=== PATIENT | female | born 1975 ===

== ENCOUNTER 2025-02-18 10:00 | Outpatient (REF) | payer BC, SELFPAY ==
[2025-02-18 15:11] LABS: Adenovirus PCR Not Detected (Not Detect.); Bordetella parapertussis PCR Not Detected (Not Detect.); Bordetella pertussis PCR Not Detected (Not Detect.); Chlamydia pneumoniae PCR Not Detected (Not Detect.); Coronavirus 229E PCR Not Detected (Not Detect.); Coronavirus HKU1 PCR Not Detected (Not Detect.); Coronavirus NL63 PCR Not Detected (Not Detect.); Coronavirus OC43 PCR Not Detected (Not Detect.); Human metapneumovirus PCR Not Detected (Not Detect.); Influenza A PCR Not Detected (Not Detect.); Influenza B PCR Not Detected (Not Detect.); Mycoplasma pneumoniae PCR Not Detected (Not Detect.); Parainfluenza 1 PCR Not Detected (Not Detect.); Parainfluenza 2 PCR Not Detected (Not Detect.); Parainfluenza 3 PCR Not Detected (Not Detect.); Parainfluenza 4 PCR Not Detected (Not Detect.); RSV PCR Not Detected (Not Detect.); Rhino/Enterovirus PCR Detected (Not Detect.)
[2025-02-18 15:22] LABS: Influenza A H1 PCR Not Detected (Not Detect.); Influenza A H1-2009 PCR Not Detected (Not Detect.); Influenza A H3 PCR Not Detected (Not Detect.); SARS-CoV-2 PCR Not Detected (Not Detect.)
== END 2025-02-18 10:01 | disposition home or self-care (01) ==
LOC: HO.LAB 10:00
PROVIDERS: Visit Provider Physician Assistant
DX: J06.9 Acute upper respiratory infection, unspecified (principal); H66.003 Acute suppurative otitis media without spontaneous rupture of ear drum, bilateral
CPT/HCPCS: 87633; 87880

== ENCOUNTER 2025-02-18 10:00 | Outpatient (AMB) | payer BC, SELFPAY ==
--- NOTE | 2025-02-18 10:04 | AM.OFFWIN_ITS ---
Intake Vital Signs 02/18/25 10:06 Weight 128 lb 6 oz BP 122/80 Blood Pressure Location Lt brachial Position Sitting Pulse 71 Pulse Source Pulse Oximeter Temp 98.3 F Temp Source Oral Pulse Oximetry (%) 96 Oxygen Delivery Method Room Air Intake Visit Reasons: [employer]-sore throat, earache, cough, running nose Intake Note: Patient here for sore throat, ear pain, cough and congestion that started yesterday and has progressively worsened. Patient Tobacco Use Status: Never used Tobacco Allergies penicillin V Allergy (Unknown, Verified 02/18/25 10:07) rash Do you need a note to return to daycare/school/sports/work: No HPI HPI Comments History of Present Illness Details History - The patient is a 49-year-old female pr esenting with upper respiratory symptoms, including sinus congestion and ear pain. - Initial symptoms began two days ago wi th an itchy, scratchy throat. - Progression included molar pain, sinus congestion, and eventual ear pain described as similar to past ear infections. - She has had difficulty maintaining bod y warmth but reports no significant fever; a normal temperature of 98.3?F was noted. - The patient noted head congestion and is aware of potential seasonal allergies, although no routine honey and tea regimen was followed this year. - She reports previous symptoms resembli ng current ear discomfort, has a history of an ear infection - Allergy to penicillin noted with previ ous rash reaction. - Other family and colleagues at home re main healthy. Physical Exam General: Cooperative, healthy appearing, comfortable and no acute distress Orientation/consciousness: Patient oriented x3 Limitations: No limitations Head: Normal to inspection Ears: Hearing grossly normal bilaterally, external ears normal, TM's dark erythematous, purulent fluid and slight bulging Nose: Normal external nose present, Normal nares present and No nasal discharge present Face and sinus: Normal facial exam and Yes sinuses nontender Mouth: Normal oral and palatal mucosa present and moist mucous membranes Throat: Yes tonsils normal, Yes uvula midline. Posterior oropharynx erythema Eyes: Appearance normal, both eyes and all related structures Neck: Normal visual inspection Respiratory: Clear to auscultation bilaterally. Normal respiratory effort, able to speak in complete sentences, Actively coughing, no respiratory distress, not tachypneic, no tripod positioning and no use of accessory muscles Cardiovascular: Regular rate and rhythm. Normal S1 and S2 Skin: No rashes or lesions noted Neuro: Patient oriented x3 Extremities: Normal to inspection and Yes no clubbing, cyanosis or edema PFSH Social History Patient Tobacco Use Status: Never used Tobacco Review of Systems Const All systems reviewed & are unremarkable except as noted in HPI and below Physical Exam Vital Signs: Last Vital Signs Temp 98.3 F 02/18/25 10:06 Pulse 71 02/18/25 10:06 BP 122/80 02/18/25 10:06 Pulse Ox 96 02/18/25 10:06 Oxygen Delivery Method Room Air 02/18/25 10:06 Results AMB Rapid Strep AMB Rapid Strep Negative Last Edit by TABITHA Allison on 02/18/25 10:46 Results Reviewed Results Reviewed: Laboratory Last Values Strep Scn Rapid Clinic Negative 02/18/25 10:45 Assessment & Plan Assessment & Plan (1) Otitis media of both ears: Code(s): H66.93 - Otitis media, unspecified, bilateral Qualifiers: Chronicity: acute Otitis media type: suppurative Recurrence: non- recurrent Spontaneous tympanic membrane rupture: without spontaneous rupture Qualified Code(s): H66.003 - Acute suppurative otitis media without spontaneous rupture of ear drum, bilateral Plan: VSS, pt well appearing and PE remarkable for bilat OM. The patient is likely experiencing an upper respiratory tract infection accompanied by otitis media. Treatment with Cefuroxime was initiated, taking into consideration the patient's penicillin allergy. An oral steroid regimen was prescribed to help mitigate sinus congestion, and an antihistamine like Zyrtec was advised to manage any allergic components. A viral panel was ordered to identify any concurrent viral infection; results will guide further therapeutic adjustments if necessary. The patient was advised on the importance of wearing a mask to prevent transmission of potential viral components, encouraging rest and hydration as supportive measures. Patient was informed and verbally consented to the use of an ambient scribe for clinic note documentation during this visit (2) URI, acute: Code(s): J06.9 - Acute upper respiratory infection, unspecified Plan: as above Orders: Orders AMB Rapid Strep Screen Today Z13.9 - Encounter for screening, unspecified Resp Pathogen Panel - [facility] [place] J06.9 - Acute upper respiratory infection, unspecified Medications: New prednisone 20 mg PO DAILY 5 tabs 0RF cefuroxime axetil 500 mg PO Q12H 10 tabs 0RF Coding Level of Care Code New Pt Level 3 (49559) Diagnoses Non-recurrent acute suppurative otitis media of both ears without spontaneous rupture of tympanic membranes H66.003 Chronicity: acute Otitis media type: suppurative Recurrence: non-recurrent Spontaneous tympanic membrane rupture: without spontaneous rupture URI, acute J06.9
[2025-02-18 10:06] VITALS: BP 122/80; PULSE 71; TEMP 36.8; O2SAT 96
--- OUTSIDE RECORDS SUMMARY | 2025-02-18 11:21 | XMS_ITS | Data Portability ---
Author Organization [facility], , [facility] Address [address] [place] [address] Care Team Providers [employer] Name Role Phone SRI OVERTON Primary Care Provider [facility] (ARIELA TRIMBLE) Orthopedic Surgeon Assessment Encounter Date Assessment Date Assessment LastModified by Organization Details LastModified Time 07/15/2019 07/15/2019 Patient will f/u with LABOR RELATIONS SUPERVISOR provider about pap and removal of Mirena IUD next year. Recommended eye and dental exam. rashard Not available 07/15/2019 10:16:44 10/29/2020 10/29/2020 Patient agreed to this visit via a secure telehealth platform due to the COVID -19 pandemic. Patient understands this is a scheduled visit and the usual procedures with regard to billing and confidentiality apply. Patient was notified that the provider location is [facility] Patient location: home During the visit the patient? s medical history and medical record were reviewed. The patient was notified to call our office for worsening or urgent symptoms. After a discussion of treatment options, which included consideration of best practices and patient preferences, the following treatment plan and objectives were adopted: [email or web address] Not available 10/29/2020 14:41:55 09/12/2022 09/12/2022 After a discussion of treatment options, which included consideration of best practices and patient preferences, the following treatment plan and objectives were adopted: Not available 10/20/2022 17:48:57 Plan of Treatment Reminders Order Date Submit Date Provider Last Modified By Organization Details Last Modified Time Details Appointments None record ed. Lab lipid panel, serum 2023 024 [facility], [address] [place], [address], 4 15:04:16 BMP, serum or plasma 2023 024 [facility], [address] [place], [address], 4 15:04:15 CBC 2023 024 [facility], [address] [place] [address], [address], 4 12:29:09 TSH, serum or plasma 2023 024 [facility], [address] [place] [address], [address], 4 15:00:42 pap, LB + HPV - if HPV positi ve reflex to HPV subtyp ing 2022 023 [facility] (Pathology), [address] [place], [address], 3 14:24:37 Referral gyneco logist referr al 2023 024 [email or web address], [address] [place] [address] , [place], [address], 4 12:18:46 Procedures colono scopy proced ure (PROC) [address] [facility], [address] [place], [address], 2 09:04:31 Surgeries None record ed. Imaging MAMMO, screen ing, tomosy nthesi s, bilate ral 2021 023 [facility] (Imaging), [address], [place], [address], 3 14:58:00 Medication Orders albute rol sulfat e HFA 90 mcg/ac tuatio n aeroso l inhale r 2019 020 [id number] [id number], [id number] [facility], [place], [address], 09:06:26 Patient TargetsNo targets recorded. 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 Referral for [place] rveillance of intrauterine device contraception done Referring Physician: Sintia Townsend, Family Medicine, Encounter Date: 01/01/2024 Results Created Date Observation Date Name Description Value Unit Range Abnormal Flag Note LastModifiedBy Organization Detail LastModifiedTime 10/26/20 20 10/26/2020 SARS CoV 2 RNA, QL probe , unspe cifie d speci men covid-19 PCR specimen source UNKNOW N Not Available [facility] (Centralized Electronic Ordering - All Locations) Patient Can Go To The Location Of Their Choice, [id number] 10/27/2020 13:33:12 10/26/20 20 10/27/2020 SARS CoV 2 RNA, QL probe , unspe cifie d speci men covid-19 PCR result (neg) abnormal POSIT ILEANA Posit ileana for detec tion of 2019- novel Coron aviru s (2018 -nCoV ) by RT-PC R. Resul t repor sujatha to [facility]. All test resul ts must be corre lated with clini ruth findi ngs. This test has been autho rized by the FDA under an Emerg ency Use Autho rizat ion (EUA) for use by autho rized labor atori es. Testi ng perfo rmed on the Holog ic Panth er Aptim a assay utili zing trans cript ion-m ediat ed ampli ficat ion (TMA) . Not Available [facility] (Centralized Electronic Ordering - All Locations) Patient Can Go To The Location Of Their Choice, 10/27/2020 13:33:12 09/26/2009/26/2022 BASIC METAB OLIC PANEL glucose 95 mg/dL (70-99 ) Fasti ng Not Available [facility] (Centralized Electronic Ordering - All Locations) Patient Can Go To The Location Of Their Choice, 09/26/2022 16:47:43 09/26/2009/26/2022 BASIC METAB OLIC PANEL BUN 14 mg/dL (6-20) Not Available [facility] (Centralized Electronic Ordering - All Locations) Patient Can Go To The Location Of Their Choice, 09/26/2022 16:47:43 09/26/2009/26/2022 BASIC METAB OLIC PANEL creatinine 0.7 mg/dL (0.5-1 .0) Not Available [facility] (Centralized Electronic Ordering - All Locations) Patient Can Go To The Location Of Their Choice, 09/26/2022 16:47:43 09/26/2009/26/2022 BASIC METAB OLIC PANEL sodium 142 mmol/ L (133-1 45) Not Available [facility] (Centralized Electronic Ordering - All Locations) Patient Can Go To The Location Of Their Choice, 09/26/2022 16:47:43 09/26/2009/26/2022 BASIC METAB OLIC PANEL potassium 4.7 mmol/ L (3.6-5 .2) Not Available [facility] (Centralized Electronic Ordering - All Locations) Patient Can Go To The Location Of Their Choice, 09/26/2022 16:47:43 09/26/2009/26/2022 BASIC METAB OLIC PANEL chloride 106 mmol/ L (98-10 7) Not Available [facility] (Centralized Electronic Ordering - All Locations) Patient Can Go To The Location Of Their Choice, 09/26/2022 16:47:43 09/26/2009/26/2022 BASIC METAB OLIC PANEL bicarbonate 28 mmol/ L (22-29 ) Not Available [facility] (Centralized Electronic Ordering - All Locations) Patient Can Go To The Location Of Their Choice, 09/26/2022 16:47:43 09/26/2009/26/2022 BASIC METAB OLIC PANEL anion gap 8 (4-17) Not Available [facility] (Centralized Electronic Ordering - All Locations) Patient Can Go To The Location Of Their Choice, 09/26/2022 16:47:43 09/26/20 22 09/26/2022 BASIC METAB OLIC PANEL calcium 9.8 mg/dL (8.6-1 0.5) Not Available [facility] (Centralized Electronic Ordering - All Locations) Patient Can Go To The Location Of Their Choice, 09/26/2022 16:47:43 09/26/20 22 09/26/2022 BASIC METAB OLIC PANEL estimated GFR creatinine 101 mL/mi n/1.7 3_M2 Creat inine based estim ated glome rular filtr ation (eGFR ) in adult s is calcu lated using the Natio nal Kidne y Found ation recom maría d 2020 CKD-E PI equat ion. Estim ates GFR from serum creat inine , age and sex. Not Available [facility] (Centralized Electronic Ordering - All Locations) Patient Can Go To The Location Of Their Choice, 09/26/2022 16:47:43 09/26/2009/26/2022 LIPID PANEL cholesterol, total 292 mg/dL (<200) high Not Available [facility] ([facility] Ordering - All Locations) Patient Can Go To The Location Of Their Choice, 09/26/2022 16:47:45 09/26/2009/26/2022 LIPID PANEL triglyceride 166 mg/dL (<150) high Fasti ng Not Available [facility] (Centralized Electronic Ordering - All Locations) Patient Can Go To The Location Of Their Choice, 09/26/2022 16:47:45 09/26/2009/26/2022 LIPID PANEL HDL chol 74 mg/dL (>39) Not Available [facility] (Centralized Electronic Ordering - All Locations) Patient Can Go To The Location Of Their Choice, 09/26/2022 16:47:45 09/26/2009/26/2022 LIPID PANEL LDL cholesterol, calculated 185 mg/dL (0-130 ) high Not Available [facility] (Centralized Electronic Ordering - All Locations) Patient Can Go To The Location Of Their Choice, 09/26/2022 16:47:45 09/26/20 22 09/26/2022 LIPID PANEL non HDL cholesterol (calc) 218 mg/dL (<160) high Not Available [facility] (Centralized [facility] Ordering - All Locations) Patient Can Go To The Location Of Their Choice, 09/26/2022 16:47:45 09/26/20 22 09/26/2022 TSH TSH 1.40 uIU/m L (0.4-4 .2) Not Available [facility] (Centralized Electronic Ordering - All Locations) Patient Can Go To The Location Of Their Choice, 09/26/2022 16:52:52 09/26/2009/27/2022 ANTI- HEPAT ITIS C anti-hepatit is C (neg) normal NEGAT ILEANA Refer ence range : Negat ileana This test was perfo rmed on the Abbot t Archi tect immun oassa y syste m. Not Available [facility] (Centralized Electronic Ordering - All Locations) Patient Can Go To The Location Of Their Choice, 09/27/2022 10:48:53 01/01/20 24 01/01/2024 CBC WBC 4.38 K/? ? ?L 3.98-1 0.04 Not Available [address], [address], 01/01/2024 12:29:08 01/01/20 24 01/01/2024 CBC RBC 4.69 M/? ? ?L 3.93-5 .22 Not Available [address], [address], 01/01/2024 12:29:08 01/01/20 24 01/01/2024 CBC HGB 13.8 g/dL 11.2-1 5.7 Not Available [address], [address], 01/01/2024 12:29:08 01/01/20 24 01/01/2024 CBC HCT 42.5 % 34.1-4 4.9 Not Available [address], [address], 01/01/2024 12:29:08 01/01/20 24 01/01/2024 CBC MCV 90.6 fL 79.4-9 4.8 Not Available [address], [address], 01/01/2024 12:29:08 01/01/20 24 01/01/2024 CBC MCH 29.4 pg 25.6-3 2.2 Not Available [address], [address], 01/01/2024 12:29:08 01/01/20 24 01/01/2024 CBC MCHC 32.5 g/dL 32.2-3 5.5 Not Available [address], [address], 01/01/2024 12:29:08 01/01/20 24 01/01/2024 CBC plt 231 K/? ? ?L 182-36 9 Not Available [address], [address], 01/01/2024 12:29:08 01/01/20 24 01/01/2024 CBC MPV 11.8 fL 9.4-12 .3 Not Available [address], [address], 01/01/2024 12:29:08 01/01/20 24 01/01/2024 CBC neut% 61.9 % 34.0-7 1.1 Not Available [address], [address], 01/01/2024 12:29:08 01/01/20 24 01/01/2024 CBC neut# 2.71 1.56-6 .13 Not Available [address], [address], 01/01/2024 12:29:08 01/01/20 24 01/01/2024 CBC lymph % 27.9 % 19.3-5 1.7 Not Available [address], [address], 01/01/2024 12:29:08 01/01/20 24 01/01/2024 CBC lymph # 1.22 K/? ? ?L 1.18-3 .74 Not Available [address], [address], 01/01/2024 12:29:08 01/01/20 24 01/01/2024 CBC mono% 8.4 % 4.7-12 .5 Not Available [address], [address], 01/01/2024 12:29:08 01/01/20 24 01/01/2024 CBC mono# 0.37 0.24-0 .56 Not Available [address], [address], 01/01/2024 12:29:08 01/01/20 24 01/01/2024 CBC eo% 0.9 % 0.7-5. 8 Not Available [address], [address], 01/01/2024 12:29:08 01/01/20 24 01/01/2024 CBC eo# 0.04 0.04-0 .36 Not Available [address], [address], 01/01/2024 12:29:08 01/01/20 24 01/01/2024 CBC baso% 0.7 % 0.1-1. 2 Not Available [address], [address], 01/01/2024 12:29:08 01/01/20 24 01/01/2024 CBC baso# 0.03 0.00-0 .08 Not Available [address], [address], 01/01/2024 12:29:08 01/01/20 24 01/01/2024 CBC RDW-CV 13.2 % 11.7-1 4.4 Not Available [address], [address], 01/01/2024 12:29:08 01/01/20 24 01/01/2024 CBC Ig% 0.200 % 0.000- 1.500 Ig % >0.5 Indic ates possi ble Left Shift Not Available [address], [address], 01/01/2024 12:29:08 01/01/20 24 01/01/2024 CBC Ig# 0.010 0.000- 0.093 Not Available [address], [address], 01/01/2024 12:29:08 01/01/20 24 01/01/2024 CBC NRBC% 0.0 % 0.0-0. 2 Not Available [address], [address], 01/01/2024 12:29:08 01/01/20 24 01/01/2024 CBC NRBC# 0.000 0.000- 0.012 Not Available [address], [address], 01/01/2024 12:29:08 01/01/20 24 01/01/2024 TSH TSH 1.91 uIU/m L 0.50-6 .00 The Ameri can Colle ge of Endoc rinol ogy and Ameri can Thyro id Assoc iatio n recom mend goal TSH value s betwe en 0.4-4 .0 mIU/m L. Not Available [address], [address], 01/01/2024 15:00:42 01/01/20 24 01/01/2024 BASIC METAB OLIC PANEL glucose 91 mg/dL 70-100 Not Available [address], [address], 01/01/2024 15:04:15 01/01/20 24 01/01/2024 BASIC METAB OLIC PANEL BUN 18 mg/dL 7-18 Not Available [address], [address], 01/01/2024 15:04:15 01/01/2001/01/2024 BASIC METAB OLIC PANEL creatinine 0.7 mg/dL 0.8-1. 3 low Not Available [address], [address], 01/01/2024 15:04:15 01/01/2001/01/2024 BASIC METAB OLIC PANEL B/C 25.7 ratio Not Available [address], [address], 01/01/2024 15:04:15 01/01/2001/01/2024 BASIC METAB OLIC PANEL GFR >=60ML /MIN mL/mi n normal >=60m L/min - Madelin l or midly reduc ed <60mL /min- Decre ased kidne y funct ion <15mL /min - Kidne y failu re [facility] calcu lates estim ated Glome rular Filtr ation Rate (eGFR ) using the Chron ic Kidne y Disea se Epide miolo gy Colla borat ion (CKD- EPI) Equat ion (Jag r et. al 2020) as recom maría d by the Natio nal Kidne y Found ation . eGFR is based on age, serum creat inine , and sex. CKD-E PI does not calcu late eGFR by race, does not apply to child jessica (age <18 years ), and shoul d not be used in pregn robby. Not Available [address], [address], 01/01/2024 15:04:15 01/01/2001/01/2024 BASIC METAB OLIC PANEL sodium 144 mmol/ L 136-14 5 Not Available [address], [address], 01/01/2024 15:04:15 01/01/20 24 01/01/2024 BASIC METAB OLIC PANEL potassium 4.7 mmol/ L 3.5-5. 1 Not Available [address], [address], 01/01/2024 15:04:15 01/01/20 24 01/01/2024 BASIC METAB OLIC PANEL chloride 105 mmol/ L 96-107 Not Available [address], [address], 01/01/2024 15:04:15 01/01/20 24 01/01/2024 BASIC METAB OLIC PANEL anion gap 12.5 5.0-15 .0 Not Available [address], [address], 01/01/2024 15:04:15 01/01/20 24 01/01/2024 BASIC METAB OLIC PANEL CO2 27 mmol/ L 21-32 Not Available [address], [address], 01/01/2024 15:04:15 01/01/20 24 01/01/2024 BASIC METAB OLIC PANEL calcium 9.3 mg/dL 8.5-10 .3 Not Available [address], [address], 01/01/2024 15:04:15 01/01/20 24 01/01/2024 LIPID PANEL cholesterol 286 mg/dL <200 mg/dl Selvin able 200-2 39 mg/dl Borde rline High >240 mg/dl High Not Available [address], [address], 01/01/2024 15:04:16 01/01/20 24 01/01/2024 LIPID PANEL triglyceride s 81 mg/dL <150 mg/dL Madelin l 150-1 99 mg/dL Borde rline High 200-4 99 mg/dL High >500 mg/dL Very High Not Available [address], [address], 01/01/2024 15:04:16 01/01/20 24 01/01/2024 LIPID PANEL direct HDL 84 mg/dL <40 mg/dl - Major Risk for CHD >60 mg/dl - Negat ileana Risk for CHD Not Available [address], [address], 01/01/2024 15:04:16 01/01/20 24 01/01/2024 LDL - CALCU LATED LDL - calculated 185.8 RISK CATEG ORY LDL GOAL _ CHD or CHD Risk Equiv alent s <100 mg/dl (10-y ear risk >20%) 2+ Risk Facto rs <130 mg/dl (10-y ear risk <= 20%) 0-1 Risk Facto r? <160 mg/dl ? Almos t all peopl e with 0-1 risk facto r have a 10 year risk <10%, thus 10 year risk asses ment in peopl e with 0-1 risk facto r is not neces lino. Not Available [address], [address], 01/01/2024 15:04:18 02/28/20 23 02/27/2023 MAMMO , scree mari, tomos ynthe sis, bilat eral CLINIC AL HISTOR Y: Screen ing. TECHNI QUE: 3D mammog charito (tomos ynthes is) and 2D mammog charito (C-vie w) images are genera sujatha. Images review ed with a CAD system . COMPAR LUCÍA: Prior mammog grady back cyrus Rodriguez y 2011. BREAST DENSIT Y: C. The breast s are hetero geneou sly dense, which may obscur e small masses . FINDIN GS: There are no suspic ious masses . There are no suspic ious microc alcifi cation s. The breast rupa ecture is normal . IMPRES RENATA: No mammog raphic eviden ce of malign robby. Annual mammog raphic screen ing recomm ended. This facili ty uses a remind er system with a target date for the next mammog [place]. BIRADS : 1, NEGATI VE Readin g Physic luke: Mark Adamson [facility] (Imaging) [address] , [place], [address], 02/27/2023 15:12:33 Result Notes None recorded. Problems Name Problem SNOMED Code Status Onset Date Resolution Date Notes Provider Name and Address Organization Details Recorded Time COVID-19 751554906 Active 2019 pos test 2019 Ling Altamirano er, DIGGING MACHINE OPERATOR [address] [place] [address], [phone] , [facility] 0 16:31:09 Headache 86259764 Completed 200208/30/2010 Not Available [facility] 3 03:04:58 Renal colic 8128257 Completed 200103/27/2012 Not Available [facility] 3 03:04:58 Gastroesop hageal reflux disease 259407411 Active Not Available [facility] 3 03:04:58 Nausea and vomiting 68645171 Completed 200208/30/2010 Not Available [facility] 3 03:04:58 Ureteric stone 81593878 Completed 200103/27/2012 Not Available [facility] 3 03:04:58 Constipati on 22235093 Completed 09/18/2013 Not Available [facility] 3 02:02:39 Premenstru al tension syndrome 37012683 Completed 200603/27/2012 Not Available [facility] 3 03:04:58 Dizziness 240879084 Completed 200303/27/2012 Not Available [facility] 3 03:04:58 Breast lump 11236743 Completed 03/27/2012 Not Available [facility] 3 03:04:58 Neoplasm of uncertain behavior of skin 49283425 Completed 03/27/2012 Not Available [facility] 3 03:04:58 Abdominal pain 47704425 Completed 200103/27/2012 Not Available [facility] 3 03:04:58 Verruca vulgaris 29024820 Completed 200503/27/2012 Not Available [facility] 3 03:04:58 On examinatio n - a rash Completed 200508/30/2010 Not Available [facility] 3 03:04:58 Abnormal weight gain 764264861 Completed 03/27/2012 Not Available [facility] 3 03:04:58 Acute maxillary sinusitis 92452343 Completed 200308/30/2010 Not Available [facility] 3 03:04:58 Otalgia 08221498 Completed 08/30/2010 Not Available [facility] 3 03:04:58 Epigastric pain 30157778 Completed 200403/27/2012 Not Available [facility] 3 03:04:58 Pain in limb 08542824 Completed 200603/27/2012 Not Available [facility] 3 03:04:58 Viral upper respirator y tract infection 933656189 Completed 200008/30/2010 Not Available [facility] 3 03:04:58 Malaise and fatigue 593928975 Completed 200008/30/2010 Not Available [facility] 3 03:04:58 Pain in eye 43427476 Completed 03/27/2012 Not Available [facility] 3 03:04:58 Problem Notes None recorded. Procedures Surgical History Date Name Laterality Status Provider Name and Address Organization Details Recorded Time 01/01/20 24 Advanced Care Planning completed ECTOR Vargas [facility] 12/31/2023 11:48:40 09/12/20 22 Alcohol use screening completed SRI OVERTON PA-C [address] [place] [address], [phone], [facility] 10/20/2022 17:34:38 09/12/20 22 Cardiovascular disease risk reduction counseling completed SRI OVERTON PA-C [address] [place] [address], [phone], [facility] 10/20/2022 17:34:46 09/12/20 22 Depression Screening completed SRI OVERTON PA-C [address] [place] [address], [phone], [facility] 10/20/2022 17:34:42 07/11/20 14 Wart completed Madison Crump NP [address] [place] [address], [phone], [facility] 07/11/2014 08:26:00 05/07/20 12 Wart completed Madison Crump NP [address] [place] [address], [phone], [facility] 05/07/2012 11:53:58 04/09/20 12 Wart completed Madison Crump NP [address] [place] [address], [phone], [facility] 04/09/2012 13:47:21 03/27/20 12 [place] completed Madison Crump NP [address] [place] [address], [phone], [facility] 03/27/2012 09:12:46 Imaging Results Imaging Date Name Status LastModified by Organiz ation Details LastModified Time 02/27/2023 MAMMO, screening, tomosynthesis, bilateral completed [facility] ([facility]) [address], [place], [address], 02/27/2023 15:12:33 Procedure Notes None recorded. Medical Equipment None Reported. Allergies Allergen ID Allergen Name Allergen Category Reaction Reaction Severity Criticality Documentation Date Start Date Code Code System Note Provider Name and Address Organization Details Recorded Time 31510 Product containin g penicilli n (product) medicatio n Not available Not available Not available 03/17/2009 91121 8001 SNOMED Not Available [facility] 1 06:05:20 Medications Name Sig Start Date Stop Date Status Note LastModified by Organization Details LastModified Time clindamycin HCl 300 mg capsule TAKE 1 CAPSULE BY MOUTH THREE TIMES A DAY 12/31 completed Not Available Not Available Not Available azithromyci n 250 mg tablet TAKE 2 TABLETS BY MOUTH TODAY, THEN TAKE 1 TABLET DAILY FOR 4 DAYS 07/15 completed Not Available Not Available Not Available Tubersol 5 tub. unit/0.1 mL intradermal injection solution 09/05 completed Not Available Not Available Not Available oxycodone-a cetaminophe n 5 mg-325 mg tablet TAKE 1 TABLET BY MOUTH EVERY 4 TO 6 HOURS NEEDED 12/31 completed Not Available Not Available Not Available meclizine 25 mg tablet Take 1 tablet 3 times a day by oral route. 09/05 completed Not Available Not Available Not Available benzonatate 100 mg capsule TAKE 1 CAPSULE BY MOUTH THREE TIMES A DAY 07/15 completed Not Available Not Available Not Available doxycycline monohydrate 100 mg capsule Take 2 capsules at once today 2010 active Not Available Not Available Not Avai lable codeine 10 mg-guaifene sin 100 mg/5 mL Syrup Take 10 mL every 4 hours by oral route. 2010 active Not Available Not Available Not Avai lable ibuprofen 600 mg tablet 1 TABLET EVERY 4 TO 6 HOURS NEEDED 12/31 completed Not Available Not Available Not Available albuterol sulfate HFA 90 mcg/actuati on aerosol inhaler INHALE 2 PUFFS BY MOUTH EVERY 4 HOURS 12/31 completed Not Available Not Available Not Available chlorhexidi ne gluconate 0.12 % mouthwash SWISH AND SPIT 15 ML IN THE MORNING AND IN THE EVENING FOR 2 WEEKS 12/31 completed Not Available Not Available Not Available multivitami n active Not Available Not Available Not Available [facility] Not Available Not Available Not Available omeprazole 20 mg tablet,marlee yed release Take 1 tablet every day by oral route. 2008 active Not Available Not Available Not Avai lable bimatoprost 0.03 % drops with applicator, eyelash base INSTILL 1 DROP TO UPPER EYE LID DAILY 12/31 completed Not Available Not Available Not Available Vitals Date Recorded Body height Body mass index (BMI) Body weight Heart rate Systolic blood pressure Diastolic blood pressure Provider Name and Address Organization Details Last Updated DateTime 9 231.14 cm 10.8 kg/m2 51220.2 3 g 60 /min 96 mm[Hg] 60 mm[Hg] Esperanza Patrick MA [facility] 9 09:51:21 Date Recorded Body height Body mass index (BMI) Body weight Provider Name and Address Organization Details Last Updated DateTime 10/29/2020 165.1 cm 20.6 kg/m2 34250.45 g Esperanza Patrick [facility] 10/29/2020 14:27:18 Date Recorded Body weight Body mass index (BMI) Body height Heart rate Oxygen saturation Oxygen saturation in Arterial blood by Pulse oximetry Systolic blood pressure Diastolic blood pressure Provider Name and Address Organization Details Last Updated DateTime 2 53765.1 9 g 24.4 kg/m2 157.48 cm 58 /min 99 % 99 % 131 mm[Hg] 94 mm[Hg] Leah Lancaster CMA [facility] 2 11:25:31 Date Recorded Body height Body mass index (BMI) Body weight Heart rate Oxygen saturation Oxygen saturation in Arterial blood by Pulse oximetry Systolic blood pressure Diastolic blood pressure Provider Name and Address Organization Details Last Updated DateTime 4 157.48 cm 22.9 kg/m2 78907.0 5 g 68 /min 98 % 98 % 110 mm[Hg] 70 mm[Hg] ECTOR Vargas [facility] 4 09:12:01 Social History Question Answer Notes LastModified by Organizat ion Details LastModified Time Tobacco Smoking Status Never Smoker Not Available [facility] 09/15/2011 04:53:49 Do You Have An Advance Directive? No 03/27/12 Paperwork Given true Information not available 11/21/2022 What Is Your Level Of Alcohol Consumption? Moderate 2 Drinks A Day.. 3.4.24 NR [email or web address] Information not available 01/01/2024 Do You Wear A Helmet When Biking? Yes Information not available 09/25/2017 What Is Your Level Of Caffeine Consumption? Moderate Tea And Coffee [email or web address] Information not available 09/12/2022 How Much Tobacco Do You Chew? None Information not available 03/27/2012 What Type Of Diet Are You Following? REGULAR Very Little Meat Information not available 03/27/2012 Which Illicit Or Recreational Drugs Have You Used? None Information not available 09/25/2017 Do You Or Have You Ever Used E-cigarettes Or Vape? 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 Yes Mother In Aug 2020.. Dad Passed 2011 [email or web address] Information not available 01/01/2024 How Many Days In The Past Year Have You Had A Heavy Drinking Consumption (4+ Female, 5+ Male)? 0 Information not available 11/21/2022 Are There Any Guns Present In Your Home? No [email or web address] Information not available 09/12/2022 Do You Use Insect Repellent Routinely? No [email or web address] Information not available 09/12/2022 Live Alone Or With Others? With Others Information not available 11/21/2022 Patient Has Health Care Proxy Signed And In Chart No Evangelina Evans (best Friend) [email or web address] Information not available 11/01/2018 Marital Status [email or web address] Informa tion not available 11/21/2022 Mosquito Repellent Used Routinely No Information not available 11/21/2022 What Was The Date Of Your Most Recent Tobacco Screening? 01/01/2024 Information not available 01/01/2024 How Many Children Do You Have? 0 Information not available 03/27/2012 What Is Your Relationship Status? [email or web address] Information not available 01/01/2024 Do You Use Your Seat Belt Or Car Seat Routinely? Yes [email or web address] Information not available 09/12/2022 Seat Belts Used Routinely Yes Information not available 11/21/2022 Smoke Alarm In Home Yes Information not available 11/21/2022 Do You Have Smoke And Carbon Monoxide Detectors In Your Home? Yes [email or web address] Information not available 09/12/2022 Are You Passively Exposed To Smoke? No [email or web address] Information not available 09/12/2022 Do You Or Have You Ever Used Smokeless Tobacco? Never Used Smokeless Tobacco Information not available 07/15/2019 How Much Tobacco Do You Smoke? No Information not available 07/15/2019 General Stress Level High Information not available 11/21/2022 Do You Use Any Illicit Or Recreational Drugs? No [email or web address] Information not available 09/12/2022 Do You Use Sunscreen Routinely? Yes Information not available 09/25/2017 How Many Years Have You Smoked Tobacco? 0 Information not available 07/15/2019 Sex: Unknown Functional Status None recorded. Mental Status None recorded. Family History Relationship Description Onset Age of this Age Resolved Age Notes LastModified by Organization Details LastModified Time Mother Hypertensive disorder [email or web address] Not available 07/11 08:29:43 Notes:Cardiovascular: Family history is remarkable for hypertension. mother. Respiratory: Family history is remarkable for asthma. father. Psychiatric: Family history is remarkable for post traumatic stress disorder. mother and father. Endocrine: Family history is remarkable for hyperlipidemia and T2DM (mother) Medical History No medical history recorded. Gynecological HistoryNo gynecological history recorded. Obstetrics History GPAL:G 0 P 0 0 0 0 Immunizations Vaccine Type Date Status Note Provider Nam e and Address Organization Details Recorded Time Influenza, split virus, trivalent, preservative 1 completed Not Available [facility] 11/16/2019 02:30:28 Td(adult) unspecified formulation 6 completed Not Available [facility] 09/14/2011 05:21:29 Hep B, unspecified formulation 6 completed Ling Harper, DIGGING MACHINE OPERATOR [address] [place] [address], [address], [facility] 11/21/2022 09:33:44 influenza, unspecified formulation 7 completed Not Available [facility] 09/14/2011 05:21:55 Tdap 2 completed Not Available [facility] 11/16/2019 02:15:47 Influenza, split virus, trivalent, PF 3 completed Not Available [facility] 11/16/2019 02:34:51 Influenza, split virus, quadrivalent, PF 4 completed Not Available [facility] 11/16/2019 02:19:20 polio, unspecified formulation 3 completed Ling Harper, DIGGING MACHINE OPERATOR [address] [place], [address], [facility] 11/21/2022 09:33:44 MMR 2 completed Ling Perkinsider, DIGGING MACHINE OPERATOR [address] [place], [address], [facility] 11/21/2022 09:33:44 polio, unspecified formulation 4 completed Ling Harper, DIGGING MACHINE OPERATOR [address] [place], [address], [facility] 11/21/2022 09:33:44 DTP 4 completed Ling Harper, DIGGING MACHINE OPERATOR [address] [place], [address], [facility] 11/21/2022 09:33:44 DTP 3 completed Ling Harper, DIGGING MACHINE OPERATOR [address] [place], [address], [facility] 11/21/2022 09:33:44 MMR 1 completed Lign Harper, DIGGING MACHINE OPERATOR [address] [place], [address], [facility] 11/21/2022 09:33:44 DTP 2 completed Ling Harper, DIGGING MACHINE OPERATOR [address] [place], [address], [facility] 11/21/2022 09:33:44 polio, unspecified formulation 2 completed Ling Harper, DIGGING MACHINE OPERATOR [address] [place], [address], [facility] 11/21/2022 09:33:44 Influenza, split virus, quadrivalent, PF 6 completed Not Available [facility] 11/16/2019 02:37:10 Influenza, split virus, quadrivalent, PF 7 completed Not Available [facility] 11/16/2019 02:34:53 Influenza, split virus, trivalent, preservative 0 completed Not Available [facility] 11/16/2019 02:17:49 COVID-19, mRNA, LNP-S, PF, 30 mcg/0.3 mL dose 1 completed Leah Lancaster PEDIATRIC DENTIST null, [facility] 09/12/2022 11:14:21 COVID-19, mRNA, LNP-S, PF, 30 mcg/0.3 mL dose 1 completed Leah Lancaster PEDIATRIC DENTIST null, [facility] 09/12/2022 11:14:26 COVID-19, mRNA, LNP-S, bivalent, PF, 30 mcg/0.3 mL dose 2 completed ECTOR Vargas null, [facility] 12/31/2023 11:46:31 Past Encounters Encounter ID Performer Location Encounter Start Date Encounter Closed Date Diagnosis/Indication Diagnosis SNOMED-CT Code Diagnosis ICD10 Code Diagnosis Note [id number] SURESH [facility] [place] [address] [place] [id number] 02/26/2001 13:00:00 11/19/2008 02:02:29 [id number] Radiology , [address] [place] [id number] 01/02/2002 11:15:00 11/19/2008 02:02:29 [id number] SURESH [facility] [place] [address] [place] [id number] 01/02/2002 10:00:00 11/19/2008 02:02:29 [id number] Eye Care, [address] [place] [id number] 06/13/2002 14:08:33 11/19/2008 02:02:29 [id number] SURESH [facility] [place] OFF[place] [address] [place] [address] 07/09/2003 13:52:12 07/10/2003 09:30:07 [id number] LAB - [address] [place] [id number] 07/09/2003 00:00:00 11/19/2008 02:02:29 [id number] SURESH [facility] [place] OFF[place] [address] [place] [address] 11/24/2003 16:49:28 11/25/2003 08:53:09 [id number] LAB - [address] [place] [id number] 11/24/2003 00:00:00 11/19/2008 02:02:29 [id number] , [facility] [place] OFFICE [address] [place] [id number] 12/29/2003 16:50:18 12/30/2003 09:07:02 [id number] FP [facility] [place], OFFICE [address] [place] [id number] 03/15/2005 17:35:41 03/16/2005 08:35:41 [id number] FP, [facility] [place], OFFICE [address] [place] [id number] 12/05/2005 15:30:57 12/06/2005 08:33:38 [id number] [facility] [place] OFF[place] [address] [place] [id number] 05/23/2006 08:18:40 05/23/2006 12:15:34 [id number] FP [facility] [place] OFFICE [address] [place] [id number] 05/25/2006 08:30:15 05/25/2006 13:18:40 [id number] FP [facility] [place] OFFICE [address] [place] [id number] 06/26/2006 08:47:24 06/26/2006 14:12:06 [id number] [facility] [place] OFFICE [address] [place] [address] 01/08/2007 08:35:50 01/08/2007 09:39:50 [id number] [facility] , [facility] [place] [address] [place] [id number] 01/16/2007 09:57:37 01/17/2007 08:17:21 [id number] [facility] [place] OFFICE [address] [place] [id number] 06/27/2007 11:28:47 06/27/2007 15:37:05 [id number] [facility] [place] OFFICE [address] [place] [id number] 09/10/2007 08:53:01 11/19/2008 02:02:29 [id number] [facility] [place] OFFICE [address] [place] [id number] 02/20/2008 08:56:55 11/19/2008 02:02:29 [id number] [facility] [place] [address] [place] [id number] 02/20/2008 09:41:33 02/20/2008 09:41:40 [id number] SURESH [facility] [place] OFFICE [address] [place] [id number] 03/17/2009 14:58:17 03/18/2009 09:59:09 [id number] [facility] [place], OFFICE [address] [place] [address] [place] [id number] 04/17/2009 08:56:01 04/20/2009 08:10:01 [id number] [facility] [place] OFFICE [address] [place] [address] [place] [id number] 05/05/2009 09:48:45 05/06/2009 08:02:01 [id number] [facility] - [facility] [place] [address] [place] [id number] 04/17/2009 09:43:13 04/17/2009 09:43:19 [id number] [facility] [place] OFFICE [address] [place] [address] [place] [id number] 08/31/2010 08:58:16 08/31/2010 13:30:53 [id number] Radiology , [address] [place] [id number] 09/14/2010 09:22:29 09/15/2010 10:53:36 [id number] Radiology , [address] [place] [address] 09/29/2010 09:44:23 09/30/2010 14:45:54 [id number] [facility] , [address] [place] [id number] 09/29/2010 09:44:50 09/30/2010 14:46:[id number] [place] [address] 03/14/2011 09:52:00 03/14/2011 10:42:35 [id number] Radiology , [address] [place] [address] 05/24/2011 08:28:38 05/25/2011 14:59:[id number] [place] [id number] 08/17/2011 09:31:40 08/17/2011 10:06:56 [id number] Radiology , [address] [facility] [place] [address] 11/07/2011 11:09:08 11/09/2011 14:48:48 [id number] S[facility]H [facility] [place] OFFICE [address] [place] [id number] 03/27/2012 07:59:37 03/27/2012 09:14:20 [id number] [facility] OFFICE [address] [place] [address] [place] [id number] 04/09/2012 12:55:44 04/09/2012 13:46:[id number] [place] [id number] 05/07/2012 11:41:31 05/07/2012 11:54:15 [id number] Yuridia Tompkins LPN [address] [place] [id number] 09/18/2013 08:56:10 09/18/2013 10:28:46 Influenza vaccine needed [id number] 106 Tuberculos is screening [id number] Luisa Ingram LPN [address] [place] [id number] 09/20/2013 08:41:32 09/20/2013 08:44:50 Tuberculosis screening [id number] [id number] Charlee Jim [address] [place] [address] 07/11/2014 07:41:30 07/11/2014 08:23:23 Screening for malignant neoplasm of cervix 314425926 Influenza vaccine needed 1110503225 106 Verruca vulgaris 70979128 Contracept ion care management 915676848 [id number] Charlee Jim [address] [place] [address] 1 11/10/2014 08:10:16 11/10/2014 08:37:14 Vertigo 910188682 Tuberculos is screening 949788114 [id number] Kami Donahue [address] [place] [address] 11/12/2014 08:28:59 11/21/2014 12:34:41 Tuberculosis screening 393088409 [id number] Madison Crump NP [address] [place] [address] 1 09/05/2016 13:34:53 09/05/2016 14:32:11 Adult health examination 866607050 Z00.00 see Risk Assessment and Lifestyle Change Counseling section above Active or passive immunization 085185681 Z23 [id number] Madison Crump NP FP, [facility], OFFICE [address] [place] [address] 09/25/2017 14:39:34 09/26/2017 08:32:28 Adult health examination 565543396 Z00.00 see Risk Assessment and Lifestyle Change Counseling section above Active or passive immunization 456731061 Z23 Screening for malignant neoplasm of cervix 572342783 Z12.4 [id number] Mary Wade D.O. [facility], OFFICE [address] [place] [address] 09/24/2018 10:10:36 09/24/2018 15:46:43 Acute bronchitis 53954542 J20.9 [id number] Mary Wade D.O. [facility], OFFICE [address] [place] [address] 07/15/2019 09:30:00 07/15/2019 10:08:05 Adult health examination 496236156 Z00.00 see Risk Assessment and Lifestyle Change Counseling section above Depression screening 171 073901 Z13.89 depression screening tool administer ed, entered into emr, scored and discussed, time greater than 7.5 minutes [id number] Mary Wade D.O. [facility], OFFICE [address] [place] [address] 10/29/2020 14:23:41 10/29/2020 16:04:43 COVID-19 119228189 U07.1 +COVID 10/26 Feeling fatigued, mild headaches, chest heaviness Presently denies feelings of dyspnea, but notes having episodes of dyspnea with past viral infections She is requesting pro air refill in the event she develops any breathing difficulti es in the upcoming days Will order Call with any concerns [id number] SRI OVERTON PA-C , [facility] [place], OFFICE [address] [place] [id number] 09/12/2022 10:53:32 09/12/2022 12:05:53 Screening for malignant neoplasm of cervix 892807064 Z12.4 Will return for Pap & IUD same day w/ MADRID DIGGING MACHINE OPERATOR Adult heal th examination 724195961 Z00.00 Will return for Pap & IUD same dayOrder mammoOrder coloUpdate fasting labs Counseling 892281220 Z71 .9 including cardiovasc ular risk reduction counseling Depression screening 171 186942 Z13.31 depression screening tool administer ed, entered into emr, scored and discussed, time greater than 7.5 minutes, 12/26 Screening for alcohol abuse 539783989 Z13.39 03/10 Screening for malignant neoplasm of colon 254683272 Z12.11 Screening mammography 24 357793 Z12.31 [id number] Ling Evelia er, DIGGING MACHINE OPERATOR FP, [facility] [place], OFFICE [address] [place] [id number] 11/21/2022 09:33:34 11/21/2022 13:09:04 Screening for malignant neoplasm of cervix 911614587 Z12.4 Screening for malignant neoplasm of colon 095139715 Z12.11 Uses IUD (intrauterine device) contraception 404483002 Z97.5 MIrena IUD placed in 2013, sexually active with . Reports no menstrual bleeding.Michelle peña in preimenopa use. Discussed removal of IUD, shared decision to remove within the next year.Advis ed to have removed at LABOR RELATIONS SUPERVISOR given hx of painful IUD removal, lack of strings noted on exam.-- Pt to call and schedule removal with LABOR RELATIONS SUPERVISOR-- Pt to advise when appt scheduled, will prescribe 1-2 tabs of lorazepam to take 30 min prior to appointmen t to help with anxiety and muscle tension. Perimenopausal state 668 7758005 38066 Z78.0 Reports some mood swings and hot flashes. She is actually 50 years old.Functi oning.Foll ow up if worsening [id number] MD SURESH Jones, [facility] [place], OFFICE [address] [place] [address] 01/01/2024 09:02:09 01/01/2024 12:09:40 Adult health examination 564689025 Z00.00 USPSTF guidelines reviewedPa p- 11/21, q5 yrsMammo- 03/21, prefers every other yrColo- FIT test givenVacci yoselyn- UTDLabs- will update.Blo od pressure- WNlEncoura ged regular dental and vison examinatio ns. HCP/MOLST- form givenNo children. Owns nail salon. Feels safe in relationsh ip. Sister with history of hypothyroi dism. No family history of colon or breast ca. Does not eat dairy, has mirena. Regular exercise encouraged -- Physical activity is important for overall health and wellbeing. The recommende d amount of exercise should include at least 150 hrs of moderate intensity aerobic exercise per week-- this can include brisk walking, riding a bike, dancing, tennis, hiking, pushing a swedish masseuse, gardening, house-work , domestic chores, etc. Depression screening 171 525252 Z13.31 depression screening tool administer ed Screening for alcohol abuse 380706387 Z13.39 Alcohol use screening tool administer ed Active or passive immunization 394211472 Z23 - declines flu Advance di rective discussed with patient 677994974 Z71.89 Advanced Care Planning 2. Participan ts included {{patient* patient and family pat ient's family pat ient's surrogate} } and they were given an opportunit y to decline discussion . 3. Health Care Proxy {{was* was not}} discussed. 4. Patient {{has has not*}} completed Health Care Proxy form. {{It was* It was not}} given to take home. Screening for malignant neoplasm of colon 402977859 Z12.11 Surveillan ce of intrauterine device contraception done 9890787173 20941 Z30.431 - needs IUD removed; placed in 2013. Pt is hesitant for removal due to negative/p ainful experience with prior removal. Will refer to applications engineer manufacturing at this time-- referral to [facility], will reach out if she prefer another center. Mixed hyperlipidemia 267 004362 E78.2 - history of elevated cholestero l, will repeat. Fatigue 69854024 R53.83 - family history (sister) hypothyroi dism, endorses increased fatigue and hair loss Health Concerns Section Related Observation LastModified by Organization Detai ls LastModified Time None Recorded Concern Status LastModified by Organization Details LastModified Time None Recorded Advance Directives Directive N: 03/27/12 paperwork given Payers Encounter Date Sequence Insurance Name Policy Number Policy Cheema Covered Member ID Cheema Member ID Guarantor Name 07/15/2019 1 [place] [id number] Vanny S David [id number] Ret S Pen 10/29/2020 1 [place] [id number] Vanny S David [id number] Ret S Pen 09/12/2022 1 [place] [id number] Ashleigh Hutton David [id number] Ret S Pen 11/21/2022 1 [place] [id number] Ashleigh Hutton David [id number] Ret S Pen 01/01/2024 1 [place] [id number] Ashleigh Hutton David [id number] Ret S Pen Notes Date Note Type Note Provider Name and Address Organization Details Recorded Time 07/15/2019 text/html Physical Exam/FemaleReported bypatient.PHAPatient is here for a Wellness Visit. She describes her health status as good. Patient's health is the same as last year.Notes:Patient enters clinic today for a physical exam. Overall feeling well, working too hard.Risk Assessment and Lifestyle Change Counseling 18-50Reported bypatient.Coronary Artery Disease Risk Assesment:Family History of Coronary Artery Disease; No personal history of diabetes; No history of peripheral vascular disease, AAA, or carotid disease; No personal history of coronary artery disease Breast Cancer Risk Assessment:No family history of breast cancer; No history of breast cancer or dcis Lung Cancer Risk Assessment:Never smoked; No asbestos exposure Cognitive/Behavioral Risk Assessment:No personal history of mental illness; No family history of mental illness Safety Risk Assessment:No evidence of abuse/neglect Diet:Counseled about eating a diet low in trans and saturated fats and high in fiber, fruits and vegetables Exercise counseling:Discussed the importance of daily physical activity Safety:Counseled about protecting skin from the sun and lowering the risk of skin cancer Family Planning:Using control IUD Mary Wade D.O. [address] [place] [address], [phone], [facility] 07/15/2019 11:10:15 10/29/2020 text/html Time for intake: {{1 2 3 4* 5 6 7 8 9 10 11 12 13 14 15 1 6 17 18 19 20 21 22 23 24 25}} minutes.The patient and I had a video conversation today in lieu of an in-person office visit due to the COVID-19 pandemic. Ret calls today with COVID concernsTested + on 10/26Feeling tired, mild headache. Otherwise, no sx. She is worried about developing SOBShe feels her breathing is heavy, but no SOBHas used albuterol in past for cold d/t breathing troubleShe is looking to get a refill on this today in the event her breathing worsens Mary Wade D.O. [address] [place], [address], [facility] 10/29/2020 15:30:14 09/12/2022 text/html Physical Exam/FemaleReported bypatient.PHAPatient is here for a Wellness Visit. She describes her health status as good. Patient's health is the same as last year.Risk Assessment and Lifestyle Change Counseling 18-50Reported bypatient.Coronary Artery Disease Risk Assesment:Family History of Coronary Artery Disease; No personal history of diabetes; No history of peripheral vascular disease, AAA, or carotid disease; No personal history of coronary artery disease Breast Cancer Risk Assessment:No family history of breast cancer; No history of breast cancer or dcis Lung Cancer Risk Assessment:Never smoked; No asbestos exposure Cognitive/Behavioral Risk Assessment:No personal history of mental illness; No family history of mental illness Safety Risk Assessment:No evidence of abuse/neglect Diet:Counseled about eating a diet low in trans and saturated fats and high in fiber, fruits and vegetables Exercise counseling:Discussed the importance of daily physical activity Safety:Counseled about protecting skin from the sun and lowering the risk of skin cancer Family Planning:Using control IUD Owns nail salon No covid booster SRI OVERTON PA-C [address] [place], [address], [facility] 10/20/2022 17:55:10 11/21/2022 text/html Has MIrena IUD, placed 2014has sex occaisionally has mood swings, hot flashes her correct age is 50 Ling Harper NP [address] [place], [address], [facility] 11/21/2022 09:56:32 01/01/2024 text/html Physical Exam/FemaleReported bypatient.PHAPatient is here for a Wellness Visit. She describes her health status as good. Patient's health is the same as last year.Risk Assessment and Lifestyle Change Counseling 18-50Reported bypatient.Coronary Artery Disease Risk Assesment:Family History of Coronary Artery Disease; No personal history of diabetes; No history of peripheral vascular disease, AAA, or carotid disease; No personal history of coronary artery disease Breast Cancer Risk Assessment:No family history of breast cancer; No history of breast cancer or dcis Lung Cancer Risk Assessment:Never smoked; No asbestos exposure Cognitive/Behavioral Risk Assessment:No personal history of mental illness; No family history of mental illness Safety Risk Assessment:No evidence of abuse/neglect Diet:Counseled about eating a diet low in trans and saturated fats and high in fiber, fruits and vegetables Exercise counseling:Discussed the importance of daily physical activity Safety:Counseled about protecting skin from the sun and lowering the risk of skin cancer Family Planning:Using control IUD Owns nail salon No covid booster Ever Rahman MD [address] [place] [address], [phone], [facility] 01/01/2024 09:57:40 OBGyn Episode No OBEpisode recorded.
== END 2025-02-18 11:55 | disposition home or self-care (01) ==
PROVIDERS: Visit Provider Physician Assistant
DX: H66.003 Acute suppurative otitis media without spontaneous rupture of ear drum, bilateral (principal); J06.9 Acute upper respiratory infection, unspecified; Z13.9 Encounter for screening, unspecified